=== PATIENT | male | born 1990 | race Hispanic/Latino ===

== ENCOUNTER 2018-07-29 11:42 | Emergency (ER) | payer SELFPAY ==
[~2018-07-29] VITALS: Ht 172.7 cm; Wt 79.4 kg
--- OUTSIDE RECORDS SUMMARY | 2018-07-29 11:45 | XMS REPORT | Continuity of Care Document ---
Author Author David johnny [facility] Interface Address Unknown Phone Unavailable Problems Problem Status Onset Date Classification Date Reported Comments Source ARM PAIN OR INJURY Active 04/24/2018 [facility] LEG PAIN Active 05/04/2016 [facility] Medications Medication Details Route Status Patient Instructions Ordering Provider Order Date Source Acetaminophen 325 MG / Hydrocodone Bitartrate 10 MG Oral Tablet 1 tab, PO, Q4H, PRN Pain, X 3 day, # 15 tab, 0 Refill(s) Active 05/04/2016 [facility] Acetaminophen 325 MG / Hydrocodone Bitartrate 10 MG Oral Tablet 1 tab, Route: PO, Drug Form: TAB, Dosing Weight 63.636, kg, ONCE, STAT, Start date: 05/04/16 14:02:00 [employer]ICOND[employer]CTOR WAFERS TESTER, Stop date: 05/04/16 14:02:00 [employer]ICOND[employer]CTOR WAF[employer] TESTER Inactive 05/04/2016 [facility] Ibuprofen 800 mg, 2 tab, Route: PO, Drug form: TAB, ONCE, kg, Priority: STAT, Start date: 05/04/16 12:53:00 SEMICOND[employer]CTOR WAFERS TESTER, Stop date: 05/04/16 12:53:00 CSTNotes: (Same as: Oscar) "Do Not Crush" Give with food. Inactive 05/04/2016 [facility] Allergies, Adverse Reactions, Alerts Substance Category Reaction Severity Reaction type Status Date Reported Comments Source Immunizations Immunization Date Given Site Status Last Updated Comments Source diphtheria/pertussis, acel/tetanus adult 05/04/2016 Right Deltoid completed Ayanna [facility] Results Order Name Results Value Reference Range Date Interpretation Comments Source Wrist complete DX Wrist complete DX Radiographs of the RIGHT wrist Clinical Indication: - trauma. Comparison: None. Technique: 3 views of the wrist FINDINGS: There is no acute fracture or dislocation. There is no significant soft tissue swelling. There is no radiopaque foreign body. The joint spaces appear preserved. If there is persistent clinical concern, CT or MRI can be obtained for further evaluation. IMPRESSION: 1. No fractures or dislocations of the right wrist. SL: [id number] 04/24/2018 - - Read by: Lawrence Gtz MD Dictated Date/time: 04/24/18 10:31 Electronically Signed by: Lawrence Gtz MD 04/24/18 10:32 FINAL REPORT [facility] Elbow 3 views DX Elbow 3 views DX Radiograph of the RIGHT elbow Clinical Indication: - trauma. Comparison: None. Technique: 3 views elbow FINDINGS: There is no acute fracture or dislocation. There is no significant soft tissue swelling. There is no radiopaque foreign body. The joint spaces appear preserved. No significant joint effusion. Fat pads are within normal limits. If there is persistent clinical concern, CT or MRI can be obtained for further evaluation. IMPRESSION: 1. No fractures or dislocation of the right elbow. SL: [id number] 04/24/2018 - - Read by: Lawrence Gtz MD Dictated Date/time: 04/24/18 10:30 Electronically Signed by: Lawrence Gtz MD 04/24/18 10:31 FINAL REPORT [facility] Knee series 3 views DX Knee series 3 views DX Right knee 3 views: There is no fracture or dislocation. Some small corticated ossifications are seen at the tip of the tibial spines which may be due to old injury. There are no other significant osseous, articular or soft tissue abnormalities. IMPRESSION: No acute radiographic abnormality of the right knee. [id number] 05/04/2016 - - Read by: Davin Wolf MD Dictated Date/time: 05/04/16 13:20 Electronically Signed by: Davin Wolf MD 05/04/16 13:28 FINAL REPORT [facility] Vital Signs Vital Sign Value Date Comments Source Respitory Rate 20 05/04/2016 [facility] Heart Rate 72 05/04/2016 [facility] Temperature Oral (F) 98.6 F 05/04/2016 [facility] Systolic (mm Hg) 138 05/04/2016 [facility] Diastolic (mm Hg) 77 05/04/2016 [facility] Weight 63.636 05/04/2016 [facility] BMI Calculated 21.97 05/04/2016 [facility] Systolic (mm Hg) 155 05/04/2016 [facility] Diastolic (mm Hg) 75 05/04/2016 [facility] Height 170.18 cm 05/04/2016 [facility] Temperature Oral (F) 97.9 F 05/04/2016 [facility] Respitory Rate 22 05/04/2016 [facility] Heart Rate 69 05/04/2016 [facility] Encounters Location Location Details Encounter Type Encounter Number Reason For Visit Attending Provider ADM Date DC Date Status Source [facility] [id number] Lambert Morley 05/04/2016 05/04/2016 [facility] Procedures Procedure Code Date Perfomer Comments Source Appendectomy [id number] [facility]
--- OUTSIDE RECORDS SUMMARY | 2018-07-29 11:45 | XMS REPORT | Summary of Care ---
Author Author [facility] Organization [facility] Address Unknown Phone Unavailable Encounter SAKSHI Deshpande(JITENDRA) [id number] Date(s): 05/04/16 - 05/04/16 [facility] [address] [place] [address]- Discharge Disposition: Home or Self Care Attending Physician: Lambert Morley MD Vital Signs Most recent to 1 2 oldest [Reference Range]: Height 170.18 cm (05/04/16 12:49 PM) Temperature Oral 98.6 DegF 97.9 DegF [96.4-99.1 DegF] (05/04/16 3:30 PM) (05/04/16 12:49 PM) Blood Pressure 138/77 mmHg 155/75 mmHg [90-140/60-90 mmHg] (05/04/16 3:30 PM) *HI* (05/04/16 12:49 PM) Respiratory Rate 20 BRMIN 22 BRMIN [14-20 BRMIN] (05/04/16 3:30 PM) *HI* (05/04/16 12:49 PM) Peripheral Pulse 72 bpm 69 bpm Rate [60-100 bpm] (05/04/16 3:30 PM) (05/04/16 12:49 PM) Weight 63.636 kg (05/04/16 12:49 PM) Body Mass Index 21.97 m2 (05/04/16 12:49 PM) Problem List No data available for this section Allergies, Adverse Reactions, Alerts Substance Reaction Severity Status NKDA Active Medications acetaminophen-hydrocodone 325 mg-10 mg oral tablet 1 tab, PO, Q4H, PRN Pain, X 3 day, # 15 tab, 0 Refill(s) Start Date: 05/04/16 Stop Date: 05/07/16 Status: Ordered acetaminophen-hydrocodone 325 mg-10 mg oral tablet 1 tab, Route: PO, Drug Form: TAB, Dosing Weight 63.636, kg, ONCE, STAT, Start da te: 05/04/16 14:02:00 LEVEL VIAL MARKER, Stop date: 05/04/16 14:02:00 LEVEL VIAL MARKER Start Date: 05/04/16 Stop Date: 05/04/16 Status: Completed ibuprofen 800 mg, 2 tab, Route: PO, Drug form: TAB, ONCE, kg, Priority: STAT, Start date: 05/04/16 12:53:00 LEVEL VIAL MARKER, Stop date: 05/04/16 12:53:00 LEVEL VIAL MARKER Notes: (Same as: Motrin)"Do Not Crush" Give with food. Start Date: 05/04/16 Stop Date: 05/04/16 Status: Discontinued Results No data available for this section Immunizations Given and Recorded Vaccine Date Status Refusal Reason diphtheria/pertussis, acel/tetanus adult 05/04/16 Given Procedures Procedure Date Related Diagnosis Body Site Appendectomy Social History Social History Type Response Smoking Status Current some day smoker; Previous treatment: None; Ready to change: No; Concerns about tobacco use in household: No; Exposure to Tobacco Smoke None; Cigarette Smoking Last 365 Days Yes; Reg Smoking Cessation Counseling No Assessment and Plan No data available for this section
[2018-07-29] MEDS ORDERED: NAPROSYN500 MG PO (12:02)
[2018-07-29] MEDS ORDERED: KETOROLAC TROMETHAMINE 30 MG/ML VIAL IV STA (12:07)
== END 2018-07-29 12:15 | disposition home or self-care (01) ==
LOC: FSED 11:42
DX: R10.31 Right lower quadrant pain (principal); S76.211A Strain of adductor muscle, fascia and tendon of right thigh, initial encounter; X50.0XXA Overexertion from strenuous movement or load, initial encounter; Y99.0 Civilian activity done for income or pay
CPT/HCPCS: 99282; J1885

== ENCOUNTER 2018-08-11 11:31 | Emergency (ER) | payer SELFPAY ==
[~2018-08-11] VITALS: Ht 172.7 cm; Wt 79.4 kg
[~2018-08-11 11:31] MED LIST: NAPROSYN500 MG PO
--- NOTE | 2018-08-11 14:54 | Diagnostic Imaging Report ---
EXAM: CT Abdomen and Pelvis without contrast INDICATION: Abdominal Pain, query hernia. COMPARISON: None. TECHNIQUE: Abdomen and pelvis were scanned utilizing a multidetector helical scanner from the lung base to the pubic symphysis without administration of oral or IV contrast. Lack of IV contrast limits evaluation for visceral structures and lack of oral contrast limits evaluation of bowel. Coronal and sagittal reformations were obtained. Routine protocol was performed. Scan was performed when during portal venous phase. ORAL CONTRAST: Water COMPLICATIONS: None RADIATION DOSE: Total DLP: 615.7 mGy*cm Estimated effective dose: (DLP x 0.015 x size factor) mSv Dose modulation, iterative reconstruction, and/or weight based adjustment of the mA/kV was utilized to reduce the radiation dose to as low as reasonably achievable. FINDINGS: LINES and TUBES: None. LOWER THORAX: Unremarkable HEPATOBILIARY: No evidence of focal lesion. No biliary ductal dilation. GALLBLADDER: Decompressed. No radio-opaque stones or sludge. No wall thickening. SPLEEN: No splenomegaly. PANCREAS: Limited evaluation. No definite focal masses or ductal dilatation. ADRENALS: No adrenal nodules KIDNEYS/URETERS: Kidneys enhance symmetrically. No evidence of hydronephrosis, solid mass, or stone. Simple left renal cyst measuring up to 2.3 cm. GI TRACT: No evidence of wall thickening or bowel obstruction. Appendix is not visualized, however there are no inflammatory changes in the right lower quadrant. Stomach is distended with enteric contents. PELVIC ORGANS/BLADDER: Unremarkable. LYMPH NODES: No lymphadenopathy. VESSELS: Retroaortic left renal vein. PERITONEUM / RETROPERITONEUM: No free air or fluid. BONES AND SOFT TISSUES: Unremarkable. CONCLUSION: No acute non-contrast CT abnormality in the abdomen or pelvis. No evidence of abdominal hernia, as clinically queried. Signed by: Dr. Finesse Smith MD on 08/11/2018 2:51 PM
== END 2018-08-11 15:59 | disposition home or self-care (01) ==
LOC: FSED 11:31
DX: R10.30 Lower abdominal pain, unspecified (principal); S39.011A Strain of muscle, fascia and tendon of abdomen, initial encounter; K40.90 Unilateral inguinal hernia, without obstruction or gangrene, not specified as recurrent
CPT/HCPCS: 74176; 99283

== ENCOUNTER 2021-09-26 11:44 | Emergency (ER) | payer OTHER ==
[~2021-09-26] VITALS: Ht 172.7 cm; Wt 79.0 kg
[2021-09-26] MEDS ORDERED: IBUPROFEN200 MG PO (12:16)
== END 2021-09-26 13:18 | disposition home or self-care (01) ==
LOC: FSED 11:49
DX: M25.512 Pain in left shoulder (principal); S43.492D Other sprain of left shoulder joint, subsequent encounter; W20.8XXD Other cause of strike by thrown, projected or falling object, subsequent encounter; Y99.0 Civilian activity done for income or pay
CPT/HCPCS: 99284